=== PATIENT | female | born 1970 | race Caucasian/White ===

== ENCOUNTER 2021-04-01 08:48 | Outpatient (CLI) | payer BC ==
[2021-04-01] MEDS ORDERED: BARIUM SULFATE 135 ML SUSP.RECON (E-Z-HD) PO ONE (09:05)
== END 2021-04-01 21:19 | disposition home or self-care (01) ==
LOC: SRD 08:48
PROVIDERS: ATTEND Otolaryngology
DX: R13.10 Dysphagia, unspecified (principal)
CPT/HCPCS: 74220-TC